=== PATIENT | female | born 1970 | race African-American/Black ===

== ENCOUNTER 2017-02-06 16:05 | Emergency (ER) | payer SELFPAY ==
[2017-02-06 17:08] LABS: Hematocrit 30.6 % (36.0-47.0); Mean Platelet Volume 7.4 fL (7.4-10.4); Red Blood Cell (RBC) Count 4.25 mill/uL (4.20-5.40); White Blood Cell (WBC) Count 7.6 thou/uL (4.8-10.8)
[2017-02-06 17:27] LABS: #Basophils 0.1 thou/uL (0.0-0.2); #Eosinphils 0.1 thou/uL (0.0-0.7); #Lymphocytes 1.4 thou/uL (1.20-3.40); #Monocytes 0.6 thou/uL (0.11-0.59); #Neutrophils 5.4 thou/uL (1.40-6.50); %Basophils 1.4 % (0.0-1.0); %Eosinophils 1.5 % (0.0-10.0); %Lymphocytes 18.5 % (21.0-51.0); %Monocytes 7.8 % (0.0-10.0); Anisocytosis SLIGHT = 6-15 cells (100X) (0-5/hpf); Hypochromia SLIGHT = 6-15 cells (100X) (0-5/hpf); Microcytosis SLIGHT = 6-15 cells (100X) (0-5/hpf)
[2017-02-06 17:36] LABS: ALT (SGPT) 8 U/L (8-55); AST (SGOT) 13 U/L (5-34); Alkaline Phosphatase 62 U/L (40-150); Anion Gap 7 mmol/L (10-20); BUN (Urea Nitrogen) 11 mg/dL (7.0-18.7); Bilirubin, Total 0.2 mg/dL (0.2-1.2); Calc. Creatinine Clearance 0 mL/min (70-130); Calcium 8.9 mg/dL (7.8-10.44); Carbon Dioxide 26 mmol/L (22-29); Chloride 108 mmol/L (98-107); Estimated GFR-MDRD Greater than 90; Globulin 3.5 g/dL (2.4-3.5); Lipase 27 U/L (8-78); Protein, Total 7.1 g/dL (6.0-8.3)
[2017-02-06 17:52] LABS: Bilirubin Negative (Negative); Blood, Urine Negative (Negative); Glucose, Urine (Dipstick) Negative (Negative); Ketone, Urine Negative (Negative); Nitrite Negative (Negative); Protein, Urine (Dipstick) Negative (Neg-Trace)
[2017-02-06] MEDS ORDERED: traMADol HCl 50 MG TAB ONE (18:09)
== END 2017-02-06 18:19 | disposition home or self-care (01) ==
LOC: ERS 16:05
DX: D25.9 Leiomyoma of uterus, unspecified (principal); F17.210 Nicotine dependence, cigarettes, uncomplicated; F41.9 Anxiety disorder, unspecified
CPT/HCPCS: 36415; 80053; 81003; 83690; 85025; 93005

== ENCOUNTER 2018-02-12 02:49 | Inpatient (IN) | payer SELFPAY ==
[2018-02-12] MEDS ORDERED: Lorazepam 2 MG/ML VIAL ONE (02:53)
[2018-02-12] MEDS ORDERED: CEFAZOLIN/Water 2 GM/20 ML SYRINGE ONE (02:59)
[2018-02-12] MEDS ORDERED: Adacel (T-DAP) 0.5 ML VIAL ONE (02:59)
[2018-02-12] MEDS ORDERED: Ondansetron PF 4 MG/2 ML Vial ONE (03:03)
[2018-02-12 03:28] LABS: #Basophils 0.1 thou/uL (0.0-0.2); #Eosinphils 0.1 thou/uL (0.0-0.7); #Lymphocytes 1.9 thou/uL (1.20-3.40); #Monocytes 0.8 thou/uL (0.11-0.59); #Neutrophils 12.8 thou/uL (1.40-6.50); %Basophils 0.3 % (0.0-1.0); %Eosinophils 0.4 % (0.0-10.0); %Monocytes 5.4 % (0.0-10.0); %Neutrophils 81.9 % (42.0-75.0); Hemoglobin 9.4 g/dL (12.0-16.0); Mean Corpuscular HGB CONC 31.5 g/dL (32.0-36.0); Mean Corpuscular Volume 79.2 fL (78.0-98.0); Mean Platelet Volume 6.1 fL (7.4-10.4); Platelet Count 590 thou/uL (130-400); RBC Distribution Width 15.6 % (11.5-14.5); Red Blood Cell (RBC) Count 3.77 mill/uL (4.20-5.40); White Blood Cell (WBC) Count 15.6 thou/uL (4.8-10.8)
[2018-02-12 03:46] LABS: Acetaminophen Less than 6.0 mcg/mL (10.0-30.0); Alcohol Less than 10 mg/dL (Less than 10); Salicylate Less than 8.0 mg/dL (15.0-30.0)
[2018-02-12 03:47] LABS: ALT (SGPT) 11 U/L (8-55); AST (SGOT) 25 U/L (5-34); Alkaline Phosphatase 70 U/L (40-150); Anion Gap 12 mmol/L (10-20); BUN (Urea Nitrogen) 19 mg/dL (7.0-18.7); Bilirubin, Total 0.2 mg/dL (0.2-1.2); Calc. Creatinine Clearance 0 mL/min (70-130); Calcium 8.7 mg/dL (7.8-10.44); Carbon Dioxide 21 mmol/L (22-29); Chloride 109 mmol/L (98-107); Estimated GFR-MDRD 80; Globulin 3.5 g/dL (2.4-3.5); Glucose 137 mg/dL (70-105); Potassium 3.8 mmol/L (3.5-5.1); Protein, Total 7.5 g/dL (6.0-8.3); Sodium 138 mmol/L (136-145)
[2018-02-12] MEDS ORDERED: Morphine 4 MG/ML VIAL ONE (04:21)
[2018-02-12] MEDS ORDERED: Lidocaine 1% PF 5 ML VIAL ONE (04:35)
[2018-02-12 04:44] LABS: Bilirubin Negative (Negative); Blood, Urine Negative (Negative); Clarity CLEAR (Clear); Glucose, Urine (Dipstick) Negative (Negative); Leukocyte Negative (Negative); Nitrite Negative (Negative); Protein, Urine (Dipstick) 30 mg/dL (Neg-Trace); Specific Gravity, Urine 1.029 (1.002-1.036); Urobilinogen 0.2 mg/dL (0.2-1.0)
[2018-02-12 04:47] LABS: Bacteria/HPF None Seen HPF (None Seen); Hyaline Casts/LPF 7-10 HYALINE CAST LPF (0-3 Hyaline); Oval Fat Bodies/HPF None Seen HPF (None Seen); Pathc Cast-AUWi Flag 0.87 (0-2.49); Pregnancy Test - Urine (BHCG) Negative (Negative); Pregu Control Background? CLEAR/WHITE (CLR/WHITE); Pregu Control Bar Appear? YES (CONTROL BAR); Renal Epithelial None Seen HPF (0-3); Specific Gravity 1.029 (1.002-1.036); Sperm/HPF None Seen HPF (None Seen); Transitional Epithelial NONE SEEN HPF (0-3); Trichomonas/HPF None Seen HPF (None Seen); WBC/HPF 0-3 HPF (0-3); Yeast-All Forms None Seen HPF (None Seen)
[2018-02-12] MEDS ORDERED: Bacitracin Zinc 1 Packet ONE ×3 (05:07)
[2018-02-12] MEDS ORDERED: Midazolam HCl 2 mg/2 ml Vial ONE (05:50)
[2018-02-12] MEDS ORDERED: Dextrose 50% Abboject 50 ML SYRINGE SLOW IVP PRN (07:09)
[2018-02-12] MEDS ORDERED: Dextrose 5% in Water 1,000 ML IV PRN (07:09)
[2018-02-12] MEDS ORDERED: Ondansetron PF 4 MG/2 ML Vial IVP PRN (07:09)
[2018-02-12] MEDS ORDERED: Promethazine HCl 25 MG/ML VIAL IM PRN ×2 (07:09)
[2018-02-12] MEDS ORDERED: Ondansetron ODT 4 MG TAB PO PRN (07:09)
[2018-02-12] MEDS ORDERED: hydrALAZINE 20 MG/ML VIAL SLOW IVP PRN (07:09)
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
[2018-02-12 08:27] LABS: Cocaine Metabolite Screen Detected (NotDetected); Medtox Reader # READER 4; Methamphetamine Detected (NotDetected); Phencyclidine (PCP) Not Detected (NotDetected); THC/Cannabinoid Screen Detected (NotDetected)
[2018-02-12 08:28] LABS: Amphetamine Not Detected (NotDetected); Barbiturates Screen Not Detected (NotDetected); Benzodiazepine Screen Not Detected (NotDetected); Medtox Control Line Valid? VALID (VALID); Methadone Not Detected (NotDetected); Opiate Screen Not Detected (NotDetected); Oxycodone Screen Not Detected (NotDetected); Tricyclic Screen Not Detected (NotDetected)
--- NOTE | 2018-02-12 08:42 | RAD ---
FRONTAL VIEW CHEST: Indication: Chest pain. Comparison: 01-13-11 FINDINGS: There is an enlarged cardiac silhouette. No lobar consolidation, effusion, or discrete pneumothorax. IMPRESSION: Enlarged cardiac silhouette. Correlate clinically. POS: [facility]
[2018-02-12] MEDS: Acetaminophen 1,000 MG in Premix Bag 1 BAG IVPB SCH ×3 (09:00→20:53)
[2018-02-12] MEDS: Sodium Chloride 0.9% 1,000 ML IV SCH ×2 (09:00→15:00)
[2018-02-12] MEDS ORDERED: Ketorolac Tromethamine 30 MG/ML VIAL IVP SCH (09:00)
[2018-02-12] MEDS: Famotidine 20 MG TAB PO SCH ×2 (09:07→20:55)
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
--- NOTE | 2018-02-12 09:21 | RAD ---
RIGHT FOOT THREE VIEWS: History: Fall with injury to foot. FINDINGS: There is a transverse fracture through the base of the fifth metatarsal, nondisplaced. No other acute fracture. Benign appearing cortical thickening along the lateral side of the first met atarsal. IMPRESSION: Nondisplaced fracture base of fifth metatarsal. POS: [facility]
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
[2018-02-12 09:34] VITALS: BMI 26.9
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
[2018-02-12] MEDS ORDERED: ISOVUE-370 76%-LOCM 1 ML ONE (11:05)
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
[2018-02-12] MEDS ORDERED: predniSONE 20 MG TAB PO SCH (16:15)
[2018-02-12] MEDS ORDERED: traMADol HCl 50 MG TAB PO PRN (20:57)
[2018-02-12] MEDS: Acetaminophen 500 MG TAB PO SCH (21:26)
[2018-02-13] MEDS: Sodium Chloride 0.9% 1,000 ML IV SCH ×2 (00:05→08:11)
[2018-02-13] MEDS: traMADol HCl 50 MG TAB PO PRN ×4 (01:06→21:16)
[2018-02-13] MEDS: Acetaminophen 500 MG TAB PO SCH ×4 (02:08→20:00)
[2018-02-13 06:47] LABS: #Lymphocytes 1.6 thou/uL (1.20-3.40); #Monocytes 1.2 thou/uL (0.11-0.59); #Neutrophils 6.3 thou/uL (1.40-6.50); %Basophils 0.1 % (0.0-1.0); %Eosinophils 0.3 % (0.0-10.0); %Lymphocytes 17.9 % (21.0-51.0); %Monocytes 12.6 % (0.0-10.0); %Neutrophils 69.1 % (42.0-75.0); Hemoglobin 8.4 g/dL (12.0-16.0); Mean Corpuscular Hemoglobin 23.6 pg (27.0-31.0); Mean Corpuscular Volume 78.7 fL (78.0-98.0); Mean Platelet Volume 6.6 fL (7.4-10.4); Platelet Count 457 thou/uL (130-400); RBC Distribution Width 15.5 % (11.5-14.5); Red Blood Cell (RBC) Count 3.54 mill/uL (4.20-5.40); White Blood Cell (WBC) Count 9.2 thou/uL (4.8-10.8)
[2018-02-13 06:59] LABS: Anion Gap 9 mmol/L (10-20); BUN (Urea Nitrogen) 9 mg/dL (7.0-18.7); Calc. Creatinine Clearance 116 mL/min (70-130); Calcium 8.4 mg/dL (7.8-10.44); Carbon Dioxide 21 mmol/L (22-29); Chloride 110 mmol/L (98-107); Estimated GFR-MDRD Greater than 90; Glucose 114 mg/dL (70-105); Potassium 3.7 mmol/L (3.5-5.1); Sodium 136 mmol/L (136-145)
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
[2018-02-13] MEDS: Famotidine 20 MG TAB PO SCH ×2 (08:05→20:00)
[2018-02-13] MEDS: predniSONE 20 MG TAB PO SCH (08:05)
[2018-02-13] MEDS ORDERED: Polyethylene Glycol 3350 17 GM Packet PO PRN (08:26)
[2018-02-13] MEDS: Polyethylene Glycol 3350 17 GM Packet PO SCH (09:50)
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
[2018-02-14] MEDS: traMADol HCl 50 MG TAB PO PRN ×3 (03:09→13:57)
[2018-02-14] MEDS: Acetaminophen 500 MG TAB PO SCH ×3 (03:09→15:17)
[2018-02-14] MEDS: predniSONE 20 MG TAB PO SCH (08:27)
[2018-02-14] MEDS: Famotidine 20 MG TAB PO SCH (08:29)
[2018-02-14] MEDS: Polyethylene Glycol 3350 17 GM Packet PO SCH (08:31)
[2018-02-14] MEDS ORDERED: Bacitracin Zinc 1 Packet TOP SCH (09:00)
[2018-02-14] MEDS ORDERED: diphenhydrAMINE 25 MG CAP PO PRN (09:17)
[2018-02-14 15:36] VITALS: TEMP 98.1
[2018-02-14 16:50] VITALS: BP 121/76
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
== END 2018-02-14 16:53 | disposition home or self-care (01) | DRG 125 ==
LOC: EEVIPCON 02:49 → ERS 02:49 → SURG A 05:51
PROVIDERS: ADMIT Surgery; ATTEND Surgery
PROC: 0HQ0XZZ Repair Scalp Skin, External Approach (ICD-10-PCS; principal; 2018-02-12)
DX: S02.31XA Fracture of orbital floor, right side, initial encounter for closed fracture (principal); S02.19XA Other fracture of base of skull, initial encounter for closed fracture; S02.40CA Maxillary fracture, right side, initial encounter for closed fracture; Y09 Assault by unspecified means; Y93.9 Activity, unspecified; Y92.812 Truck as the place of occurrence of the external cause; F41.9 Anxiety disorder, unspecified; D25.9 Leiomyoma of uterus, unspecified; R40.2410 Glasgow coma scale score 13-15, unspecified time; T68.XXXA Hypothermia, initial encounter; S01.01XA Laceration without foreign body of scalp, initial encounter; S09.90XA Unspecified injury of head, initial encounter; S60.221A Contusion of right hand, initial encounter; F17.210 Nicotine dependence, cigarettes, uncomplicated; F14.90 Cocaine use, unspecified, uncomplicated; Z72.89 Other problems related to lifestyle
CPT/HCPCS: 36415; 70450; 70486; 71045; 72125; 74177; 80048; 80053; 80306; 80307; 81003; 81015; 81025; 85025; 90471; 90686; 90715; G0008; G0390; G8978-GP-CM; G8979-GP-CJ; G8987-GO-CK; G8988-GO-CI; J0131; J1885; J2001; J2060; J2250; J2270; J2405; J7506

== ENCOUNTER 2020-01-05 10:10 | Outpatient (CLI) | payer OTHER ==
--- NOTE | 2020-01-05 10:41 | RAD ---
EXAM: 2views of the lumbosacral spine HISTORY: Low back pain COMPARISON: None FINDINGS: 2 views of the lumbosacral spine shows normal height and alignment of the vertebral bodies and intervertebral discs without fracture or subluxation. There is sacralization of L5 vertebral body. Mild degenerative changes are seen surrounding the L5/S1 intervertebral disc. The sacroiliac joints are unremarkable. IMPRESSION: Degenerative changes of the lower lumbosacral spine without acute lumbar spine abnormalit y.
== END 2020-01-05 10:11 | disposition home or self-care (01) ==
LOC: BICRAD 10:10
PROVIDERS: ATTEND Internal Medicine
DX: Z02.71 Encounter for disability determination (principal); M47.817 Spondylosis without myelopathy or radiculopathy, lumbosacral region
CPT/HCPCS: 72100